=== PATIENT | female | born 1985 | race Caucasian/White ===

== ENCOUNTER 2017-12-11 12:11 | Observation (INO) ==
[2017-12-11] MEDS ORDERED: Isovue-370 500 ML INFUS..BTL IV ONE (12:14)
[2017-12-11 12:40] LABS: Basophils % 0.7 %; Eosinophils # 0.2 K/mcL (0.0-0.6); Eosinophils % 3.7 %; Hemoglobin 14.5 g/dL (11.5-15.4); Immature Granulocytes % 0.4 % (0-4); Lymphocytes # 1.7 K/mcL (0.6-4.6); Mean Corpuscular Hemoglobin 30.3 pg (28.0-33.3); Mean Corpuscular Volume 91.9 fL (83.0-100.0); Mean Platelet Volume 10.4 fL (9.4-12.4); Monocytes # 0.3 K/mcL (0.0-1.3); Monocytes % 5.4 %; Neutrophils # 3.1 K/mcL (1.6-8.9); Platelet Count 253 K/mcL (140-400); Red Blood Count 4.79 M/mcL (3.82-4.97); Red Cell Distribution Width 15.7 % (11.5-14.5); Segmented Neutrophils % 58.8 %
[2017-12-11 12:45] LABS: Prothrombin Time 10.9 Seconds (9.4-12.1)
[2017-12-11 12:48] LABS: Activated Partial Thrombo Time 34.1 Seconds (26.0-36.0)
--- NOTE | 2017-12-11 13:03 | Emergency Department Note ---
Disposition Clinical Impression: Hepatitis Disposition: Admitted As Inpatient Condition: Good Referrals: NONE,PCP [Primary Care Provider] - Time of Disposition: 13:05 Abdominal Pain HPI - General Chief Complaint: ED Abdominal Pain Stated Complaint: "jaundice" Time Seen by Provider: 12/11/17 12:14 Source: patient, family Mode of arrival: ambulatory Limitations: no limitations Nursing Notes Reviewed: Yes Vital Signs Reviewed: Yes - History of Present Illness HPI Narrative: 32 year old female presents to the ED with complanits of RUQ pain. I had the pleasure to speaking with Dr. Velásquez (GI) who has sent her for admission secondary to possile autoimmune hepatitis. Lora mckinney she ahs increased pain inthe RLQ that is sharp . She has an elevated bilirubin and they do not believe it to be gallstone related. Mary Kate has scleral icterus and nasuea with vomitting. Mary Kate states that this has been going on for the past few weeks. Denies bleeding occurances and had a history of alcohol abuse in the past but has recovered. denies IVDA Pain Scale: 10 - Related Data Home Medications Medication Instructions Recorded Confirmed Ibuprofen [Motrin] 400 mg PO Q6HR 12/11/17 12/11/17 Tizanidine HCl 4 mg PO HS 12/11/17 12/11/17 Allergies Allergy/AdvReac Type Severity Reaction Status Date / Time codeine Allergy Hives Verified 12/11/17 12:13 tramadol Allergy Difficulty Verified 12/11/17 12:13 Breathing propoxyphene AdvReac Nausea Verified 12/11/17 12:13 [From Frank] Constitutional: Denies: fever, chills, weakness, weight change Eyes: Denies: eye pain, eye discharge, vision change ENT ED: Denies: ear pain, throat pain, dental pain, hearing loss, epistaxis, congestion, dysphagia Cardiovascular: Denies: chest pain, palpitations, dyspnea on exertion, edema, syncope Respiratory: Denies: cough, dyspnea, wheezes, hemoptysis, stridor Gastrointestinal: Reports: abdominal pain. Denies: nausea, vomiting, diarrhea, constipation, hematemesis, melena, hematochezia Genitourinary: Denies: dysuria, frequency, hematuria, discharge Musculoskeletal: Denies: back pain, neck pain, arthralgia, myalgia Integumentary: Denies: rash, abrasion, lesions Neurological: Denies: headache, weakness, numbness, paresthesias, confusion, abnormal gait, vertigo Psychiatric: Denies: anxiety, depression, suicidal thoughts, homicidal thoughts , auditory hallucinations, visual hallucinations Endocrine: Denies: fatigue Hematological/Lymphatic: Denies: easy bleeding, easy bruising Allergic/Immunologic: Denies: facial swelling, urticaria Abdominal Pain PMH - Past Medical History Medical history: Reports: no medical history Female Surgical History: Reports: cholecystectomy, hysterectomy, Tonsillectomy CADDIE SUPERVISOR history: Reports: no CADDIE SUPERVISOR history Psychiatric history: Reports: depression - Social History Smoking status: Current every day smoker Alcohol use: Reports: none Drug use: Reports: none Physical Exam - General Limitations: no limitations General appearance: alert, in no apparent distress - Head Head exam: atraumatic, normocephalic, normal inspection - Eye Eye exam: Present: PERRL, EOMI, scleral icterus - Expanded Eye Exam Pupils: Bilateral: reactive - ENT ENT exam: normal exam, normal oropharynx, mucous membranes moist - Expanded ENT Exam External ear exam: Present: normal external inspection Mouth exam: Present: normal external inspection Teeth exam: Present: normal inspection Throat exam: Present: normal inspection - Neck Neck exam: Present: normal inspection, full ROM, trachea midline - Chest Chest inspection: Present: normal inspection, symmetric chest wall rise - Respiratory Respiratory exam: Present: normal lung sounds bilaterally - Cardiovascular Cardiovascular exam: Present: regular rate, normal rhythm, normal heart sounds - Abdominal Exam Abdominal exam: Present: soft, tenderness, normal bowel sounds, Cespedes's sign. Absent: Non-Tender, distention, guarding, rebound, rigidity, Rovsing's sign, tenderness at McBurney's Point Abdominal tenderness: Present: RUQ, moderate - Extremities Exam Extremities exam: Present: normal inspection, full ROM. Absent: tenderness, pedal edema - Expanded Upper Extremity Exam Shoulder exam: Present: normal inspection, full ROM Arm exam: Present: normal inspection, full ROM Elbow exam: Present: normal inspection, full ROM Forearm/Wrist exam: Present: normal inspection, full ROM Hand exam: Present: normal inspection, full ROM Vascular exam: Normal: capillary refill, radial pulse - Expanded Lower Extremity Exam Hip/Pelvis exam: Present: normal inspection, full ROM Upper leg exam: Present: normal inspection, full ROM Knee exam: Present: normal inspection, full ROM Lower leg exam: Present: normal inspection, full ROM Ankle exam: Present: normal inspection, full ROM Foot/toe exam: Present: normal inspection, full ROM Neurovascular/Tendon exam: Absent: motor deficit, sensory deficit, tendon deficit - Back Exam Back exam: Present: normal inspection, full ROM. Absent: tenderness - Neurological Exam Neurological exam: Present: alert, oriented X3 - Expanded Neurological Exam Patient oriented to: Present: person, place, time Coma Scale Eye Opening: Spontaneous Coma Scale Motor Response: Obeys Commands Coma Scale Verbal Response: Oriented Coma Scale Total: 15 - Psychiatric Psychiatric exam: Present: normal affect, normal mood - Skin Skin exam: Present: warm, dry, intact, normal color Course Course Narrative: we will obtain abdominal pain workup with labs and ABCT for full workup and admit to medicine with GI consult onboard Vital Signs Temperature 98.2 F 12/11/17 12:12 Pulse Rate 73 12/11/17 12:12 Respiratory Rate 16 12/11/17 12:12 Blood Pressure 124/83 12/11/17 12:12 O2 Sat by Pulse Oximetry 99 12/11/17 12:12 Temperature 98.2 F 12/11/17 12:14 Pulse Rate 69 12/11/17 12:54 Respiratory Rate 16 12/11/17 12:54 Blood Pressure 128/84 12/11/17 12:54 O2 Sat by Pulse Oximetry 99 12/11/17 12:54 Oxygen Delivery Oxygen Delivery Room Air Abdominal Pain - Lab Data Result diagrams: 12/11/17 12:30 Lab Results 12/11/17 12/11/17 12/11/17 Range/Units 12:30 12:30 12:30 WBC 5.4 (4.3-11.1) K/mcL RBC 4.79 (3.82-4.97) M/mcL Hgb 14.5 (11.5-15.4) g/dL Hct 44.0 (35.3-44.9) % MCV 91.9 (83.0-100.0) fL MCH 30.3 (28.0-33.3) pg MCHC 33.0 (31.6-35.5) g/dL RDW 15.7 H (11.5-14.5) % Plt Count 253 (140-400) K/mcL MPV 10.4 (9.4-12.4) fL Immature Gran % 0.4 (0-4) % Seg Neutrophils % 58.8 % Lymphocytes % 31.0 % Monocytes % 5.4 % Eosinophils % 3.7 % Basophils % 0.7 % Neutrophils # 3.1 (1.6-8.9) K/mcL Lymphocytes # 1.7 (0.6-4.6) K/mcL Monocytes # 0.3 (0.0-1.3) K/mcL Eosinophils # 0.2 (0.0-0.6) K/mcL Basophils # 0.0 (0.0-0.2) K/mcL PT 10.9 (9.4-12.1) Seconds INR 1.0 APTT 34.1 (26.0-36.0) Seconds Lactic Acid 0.7 (0.5-2.2) mmol/L
[2017-12-11 13:16] LABS: Alanine Aminotransferase 344 Units/L (7-52); Albumin 3.9 g/dL (3.5-5.7); Albumin/Globulin Ratio 1.6 (1.1-2.2); Alkaline Phosphatase 218 Units/L (34-104); Amylase 59 Units/L (29-103); Aspartate Amino Transferase 309 Units/L (13-39); BUN/Creatinine Ratio 11 (6-26); Bilirubin,Direct 2.7 mg/dL (0.0-0.2); Bilirubin,Indirect 2.5 mg/dL (0.0-1.2); Bilirubin,Total 5.2 mg/dL (0.3-1.0); Blood Urea Nitrogen 8 mg/dL (6-20); Calcium 9.2 mg/dL (8.6-10.3); Carbon Dioxide 28 mEq/L (23-29); Chloride 107 mEq/L (98-107); Globulin 2.4 g/dL (2.4-3.5); Glucose 87 mg/dL (70-105); Lipase 69 Units/L (11-82); Osmolality,Calculated 286 (280-300); Potassium 4.5 mEq/L (3.5-5.1); Sodium 139 mEq/L (136-145); Total Protein 6.3 g/dL (6.4-8.9); eGFR For African Americans > 60 (> 60); eGFR For Non-African Americans > 60 (> 60)
[2017-12-11] MEDS ORDERED: *HR* FentaNYL (PF) 100 MCG/2 ML VIAL IVP ONE (13:45)
[2017-12-11 13:48] LABS: Bilirubin,Urine Small (Negative); Blood,Urine Negative (Negative); Color,Urine Dark Yellow (Yellow); Glucose,Urine (UA) Normal (Normal); Ketones,Urine Negative (Negative); Leukocyte Esterase,Urine Negative (Negative); Nitrite,Urine Negative (Negative); Protein,Urine Negative (Neg-Trace); Specific Gravity,Urine 1.022 (1.010-1.025)
[2017-12-11 13:51] LABS: Hyaline Casts,Urine None Seen per lpf (None-Few); Squamous Epithelial Cell,Urine Many per lpf (None-Few)
[2017-12-11 13:53] LABS: Clarity,Urine Slightly Hazy (Clear)
[2017-12-11] MEDS ORDERED: Ondansetron 4 MG/2 ML VIAL IVP ONE (14:00)
--- NOTE | 2017-12-11 14:00 | Emergency Department Note ---
Disposition Clinical Impression: Hepatitis, Jaundice, Hyperbilirubinemia Disposition: Admitted As Inpatient Condition: Good Referrals: NONE,PCP [Primary Care Provider] - Forms: ED Satisfaction Letter, Work/School Release Time of Disposition: 14:17 Abdominal Pain HPI - General Chief Complaint: ED Abdominal Pain Stated Complaint: "jaundice" Time Seen by Provider: 12/11/17 12:14 Source: patient, family Mode of arrival: ambulatory Limitations: no limitations Nursing Notes Reviewed: Yes Vital Signs Reviewed: Yes - History of Present Illness HPI Narrative: 32-year-old female presents to the emergency department with jaundice. I am familiar with this patient as I saw and evaluated her this past week. Patient presented with new onset yellowing of the skin and right upper quadrant pain. She was found to have hepatitis suspected of alcoholic given her history of alcohol abuse, ~15 beers/day. Since then she has been sober. She complains of She was given appropriate G.I. follow-up and saw Dr. Spears this morning and was sent here for admission and further evaluation which may include biopsy. Patient reports persistent sharp pain in the right upper quadrant that now seems to be a little more generalized throughout. She reports nausea without vomiting. She is also noticed that she is more bloated around the abdomen. She is also noticed some swelling in her lower extremities. She denies any recent illness, fever, cough, chest pain or shortness of breath. Again she denies history of IV drug use. She denies any recent long-distance travel. Family history of rheumatoid arthritis. At this time will evaluate with hepatic panel, basic labs in the CT of the abdomen and pelvis. Will control her pain with some Fentanyl and Zofran. Pt Subjective Complaint: abdominal pain Pain Scale: 10 - Related Data Home Medications Medication Instructions Recorded Confirmed Ibuprofen [Motrin] 400 mg PO Q6HR 12/11/17 12/11/17 Tizanidine HCl 4 mg PO HS 12/11/17 12/11/17 Allergies Allergy/AdvReac Type Severity Reaction Status Date / Time codeine Allergy Hives Verified 12/11/17 12:13 tramadol Allergy Difficulty Verified 12/11/17 12:13 Breathing propoxyphene AdvReac Nausea Verified 12/11/17 12:13 [From Frank] All systems ED: reviewed and negative except as stated. Review of Systems: As Per HPI Constitutional: Reports: weight change. Denies: fever, chills, weakness Eyes: Denies: eye pain, vision change ENT ED: Denies: congestion Cardiovascular: Reports: edema. Denies: chest pain, dyspnea on exertion Respiratory: Denies: cough, dyspnea Gastrointestinal: Reports: abdominal pain, nausea. Denies: vomiting, diarrhea, constipation, hematemesis, melena, hematochezia Genitourinary: Denies: dysuria, frequency Musculoskeletal: Denies: back pain, neck pain, arthralgia, myalgia Integumentary: Denies: rash, abrasion, lesions Neurological: Denies: headache, weakness Psychiatric: Denies: anxiety, depression Endocrine: Denies: fatigue Abdominal Pain PMH - Past Medical History Medical history: Reports: no medical history Female Surgical History: Reports: cholecystectomy, hysterectomy, Tonsillectomy TONG HOOKER history: Reports: no TONG HOOKER history Psychiatric history: Reports: depression - Social History Smoking status: Current every day smoker Alcohol use: Reports: none Drug use: Reports: none Physical Exam - General Limitations: no limitations General appearance: alert, in no apparent distress - Head Head exam: atraumatic, normocephalic, normal inspection - Eye Eye exam: Present: normal appearance, PERRL, EOMI, scleral icterus - ENT ENT exam: normal exam, normal oropharynx, mucous membranes moist - Neck Neck exam: Present: normal inspection, full ROM, trachea midline - Chest Chest inspection: Present: normal inspection, symmetric chest wall rise - Respiratory Respiratory exam: Present: normal lung sounds bilaterally - Cardiovascular Cardiovascular exam: Present: regular rate, normal rhythm, normal heart sounds - Abdominal Exam Abdominal exam: Present: soft, normal bowel sounds, ascites (mild). Absent: Non -Tender, tenderness, distention, guarding, rebound, rigidity Abdominal tenderness: Present: RUQ, diffuse - Extremities Exam Extremities exam: Present: normal inspection, full ROM, normal capillary refill , pedal edema (nonpitting). Absent: tenderness - Back Exam Back exam: Present: normal inspection, full ROM. Absent: tenderness - Neurological Exam Neurological exam: Present: alert, oriented X3 - Psychiatric Psychiatric exam: Present: normal affect, normal mood - Skin Skin exam: Present: warm, dry, intact, other (mild jaundice) Course Course Narrative: Review of her labs shows improvement of her total bilirubin as well as her transaminitis. Review for CT scan shows resolving central periportal edema. At this time will admit to hospitalist service with GI consultation. Abdomen/Pelvis CT 12/11/17 12:14 IMPRESSION: 1. Resolving central periportal edema which can be seen areas conditions including hepatitis, hepatic congestion or hypervolemia states. D/ / Paul Concepcion MD / Paul Concepcion MD Interpreting Provider: Paul Concepcion MD - Consultations Consultation #1: Spoke with on-call hospitalist roberto Mc to admit for hepatitis concerning for autoimmune. Requests APAP, EtOH, and Hepatitis panel if not already performed/drawn from GI. Time: 14:17 Vital Signs Temperature 98.2 F 12/11/17 12:12 Pulse Rate 73 12/11/17 12:12 Respiratory Rate 16 12/11/17 12:12 Blood Pressure 124/83 12/11/17 12:12 O2 Sat by Pulse Oximetry 99 12/11/17 12:12 Temperature 98.2 F 12/11/17 12:14 Pulse Rate 67 12/11/17 14:01 Respiratory Rate 16 12/11/17 14:01 Blood Pressure 135/81 12/11/17 14:01 O2 Sat by Pulse Oximetry 100 12/11/17 14:01 Oxygen Delivery Oxygen Delivery Room Air Abdominal Pain - MDM Narrative Medical decision making narrative: Patient was discussed with my attending physician who agrees with ED management and final disposition. They independently evaluated the patient. Please refer to their attestation to this encounter for additional information. This note was generated by [employer] voice recognition software and as a result grammatical or spelling errors may occur using this program. - Medical Records Medical records reviewed: Yes I reviewed the patient's medical records. - Lab Data Lab results reviewed: Yes I reviewed the patient's lab results. Result diagrams: 12/11/17 12:30 12/11/17 12:30 Lab Results 12/11/17 12/11/17 12/11/17 Range/Units 12:30 12:30 12:30 WBC (4.3-11.1) K/mcL RBC (3.82-4.97) M/mcL Hgb (11.5-15.4) g/dL Hct (35.3-44.9) % MCV (83.0-100.0) fL MCH (28.0-33.3) pg MCHC (31.6-35.5) g/dL RDW (11.5-14.5) % Plt Count (140-400) K/mcL MPV (9.4-12.4) fL Immature Gran % (0-4) % Seg Neutrophils % % Lymphocytes % % Monocytes % % Eosinophils % % Basophils % % Neutrophils # (1.6-8.9) K/mcL Lymphocytes # (0.6-4.6) K/mcL Monocytes # (0.0-1.3) K/mcL Eosinophils # (0.0-0.6) K/mcL Basophils # (0.0-0.2) K/mcL PT 10.9 (9.4-12.1) Seconds INR 1.0 APTT 34.1 (26.0-36.0) Seconds Sodium (136-145) mEq/L Potassium (3.5-5.1) mEq/L Chloride (98-107) mEq/L Carbon Dioxide (23-29) mEq/L BUN (6-20) mg/dL Creatinine (0.60-1.20) mg/dL Est GFR ( Amer) (> 60) Est GFR (Non-Af Amer) (> 60) BUN/Creatinine Ratio (6-26) Glucose (70-105) mg/dL Calculated Osmolality (280-300) Lactic Acid 0.7 (0.5-2.2) mmol/L Calcium (8.6-10.3) mg/dL Total Bilirubin (0.3-1.0) mg/dL Direct Bilirubin (0.0-0.2) mg/dL Indirect Bilirubin (0.0-1.2) mg/dL AST (13-39) Units/L ALT (7-52) Units/L Alkaline Phosphatase (34-104) Units/L Troponin I < 0.03 (< 0.04) ng/mL Serum Total Protein (6.4-8.9) g/dL Albumin (3.5-5.7) g/dL Globulin (2.4-3.5) g/dL Albumin/Globulin Ratio (1.1-2.2) Amylase (29-103) Units/L Lipase (11-82) Units/L Urine Color (Yellow) Urine Clarity (Clear) Urine pH (5.0-8.0) pH Units Ur Specific [place] (1.010-1.025) Urine Protein (Neg-Trace) mg/dL Urine Glucose (UA) (Normal) mg/dL Urine Ketones (Negative) mg/dL Urine Blood (Negative) Urine Nitrite (Negative) Urine Bilirubin (Negative) Urine Urobilinogen (Normal) mg/dL Ur Leukocyte Esterase (Negative) Ur Squamous Epith Cells (None-Few) per lpf Amorphous Sediment (Few) Urine Bacteria (None-Few) per hpf Hyaline Casts (None-Few) per lpf Ur Culture Indicated? (NO) 12/11/17 12/11/17 12/11/17 Range/Units 12:30 12:30 13:40 WBC 5.4 (4.3-11.1) K/mcL RBC 4.79 (3.82-4.97) M/mcL Hgb 14.5 (11.5-15.4) g/dL Hct 44.0 (35.3-44.9) % MCV 91.9 (83.0-100.0) fL MCH 30.3 (28.0-33.3) pg MCHC 33.0 (31.6-35.5) g/dL RDW 15.7 H (11.5-14.5) % Plt Count 253 (140-400) K/mcL MPV 10.4 (9.4-12.4) fL Immature Gran % 0.4 (0-4) % Seg Neutrophils % 58.8 % Lymphocytes % 31.0 % Monocytes % 5.4 % Eosinophils % 3.7 % Basophils % 0.7 % Neutrophils # 3.1 (1.6-8.9) K/mcL Lymphocytes # 1.7 (0.6-4.6) K/mcL Monocytes # 0.3 (0.0-1.3) K/mcL Eosinophils # 0.2 (0.0-0.6) K/mcL Basophils # 0.0 (0.0-0.2) K/mcL PT (9.4-12.1) Seconds INR APTT (26.0-36.0) Seconds Sodium 139 (136-145) mEq/L Potassium 4.5 (3.5-5.1) mEq/L Chloride 107 (98-107) mEq/L Carbon Dioxide 28 (23-29) mEq/L BUN 8 (6-20) mg/dL Creatinine 0.75 (0.60-1.20) mg/dL Est GFR ( Amer) > 60 (> 60) Est GFR (Non-Af Amer) > 60 (> 60) BUN/Creatinine Ratio 11 (6-26) Glucose 87 (70-105) mg/dL Calculated Osmolality 286 (280-300) Lactic Acid (0.5-2.2) mmol/L Calcium 9.2 (8.6-10.3) mg/dL Total Bilirubin 5.2 H (0.3-1.0) mg/dL Direct Bilirubin 2.7 H (0.0-0.2) mg/dL Indirect Bilirubin 2.5 H (0.0-1.2) mg/dL AST 309 H (13-39) Units/L ALT 344 H (7-52) Units/L Alkaline Phosphatase 218 H (34-104) Units/L Troponin I (< 0.04) ng/mL Serum Total Protein 6.3 L (6.4-8.9) g/dL Albumin 3.9 (3.5-5.7) g/dL Globulin 2.4 (2.4-3.5) g/dL Albumin/Globulin Ratio 1.6 (1.1-2.2) Amylase 59 (29-103) Units/L Lipase 69 (11-82) Units/L Urine Color Dark Yellow (Yellow) Urine Clarity Slightly Hazy (Clear) Urine pH 7.0 (5.0-8.0) pH Units Ur Specific [place] 1.022 (1.010-1.025) Urine Protein Negative (Neg-Trace) mg/dL Urine Glucose (UA) Normal (Normal) mg/dL Urine Ketones Negative (Negative) mg/dL Urine Blood Negative (Negative) Urine Nitrite Negative (Negative) Urine Bilirubin Small H (Negative) Urine Urobilinogen 4.0 H (Normal) mg/dL Ur Leukocyte Esterase Negative (Negative) Ur Squamous Epith Cells Many H (None-Few) per lpf Amorphous Sediment Few (Few) Urine Bacteria Few (None-Few) per hpf Hyaline Casts None Seen (None-Few) per lpf Ur Culture Indicated? NO (NO) - Radiology Data Radiology results reviewed: Yes I reviewed the patient's radiology results. Abdomen/Pelvis CT 12/11/17 12:14
[2017-12-11 14:05] LABS: Amorphous Sediment,Urine Few (Few); Bacteria,Urine Few per hpf (None-Few)
[2017-12-11 14:50] LABS: Acetaminophen < 10 mcg/mL (10-20)
[2017-12-11 14:52] LABS: Ethanol < 10 mg/dL (Less than 10); Salicylate < 2.5 mg/dL (15.0-30.0)
[2017-12-11] MEDS ORDERED: Naloxone 0.4 MG/ML INJ IVP PRN (16:02)
[2017-12-11] MEDS ORDERED: traMADol 50 MG TABLET PO PRN (16:02)
--- NOTE | 2017-12-11 16:09 | Internal Med History&Physical ---
Addendum entered and electronically signed by Kristen Beach 12/11/17 16:32: In the Assessment part. Pt age was mistakenly entered as 68 years old, she is 32 year old. Please correct. Original Note: <Kristen Beach - Last Filed: 12/11/17 16:06> Date of Encounter: 12/11/17 Time of Encounter: 16:06 Internal Medicine - H&P: HPI Admitted From: Home Plans for Post Hospital Care: Home History of present illness: 32-year-old female presents to the emergency department with jaundice. I am familiar with this patient as I saw and evaluated her this past week. Patient presented with new onset yellowing of the skin and right upper quadrant pain. She was found to have hepatitis suspected of alcoholic given her history of alcohol abuse, ~15 beers/day. Since then she has been sober. She complains of She was given appropriate G.I. follow-up and saw Dr. Spears this morning and was sent here for admission and further evaluation which may include biopsy. Patient reports persistent sharp pain in the right upper quadrant that now seems to be a little more generalized throughout. She reports nausea without vomiting. She is also noticed that she is more bloated around the abdomen. She is also noticed some swelling in her lower extremities. She denies any recent illness, fever, cough, chest pain or shortness of breath. Again she denies history of IV drug use. She denies any recent long-distance travel. Family history of rheumatoid arthritis. Past Med Surg Social Fam HX - Past Medical History Medical history: no medical history Psychiatric history: depression - Social History Smoking Status: Current every day smoker Smokeless Tobacco Status: No Alcohol use: none Drug use: none Internal Medicine - H&P: Meds Ibuprofen [Motrin] 400 mg PO Q6HR 12/11/17 [History] Tizanidine HCl 4 mg PO HS 12/11/17 [History] 3 Allergy/AdvReac Type Severity Reaction Status Date / Time codeine Allergy Hives Verified 12/11/17 12:13 tramadol Allergy Difficulty Verified 12/11/17 12:13 Breathing propoxyphene AdvReac Nausea Verified 12/11/17 12:13 [From Lencho-N] All Systems PM: A 10-system review of systems was performed and is negative for pertinent findings except as documented above in the HPI. Review of systems: REVIEW OF SYSTEMS: CONSTITUTIONAL: No weight loss, fever, chills, weakness or fatigue. HEENT: Eyes: No visual loss, blurred vision, double vision or yellow sclerae. Ears, Nose, Throat: No hearing loss, sneezing, congestion, runny nose or sore throat. SKIN: No rash or itching. CARDIOVASCULAR: No chest pain, chest pressure or chest discomfort. No palpitations or edema. RESPIRATORY: No shortness of breath, cough or sputum. GASTROINTESTINAL: No anorexia, nausea, vomiting or diarrhea. No abdominal pain or blood. GENITOURINARY: No dysuria, urgency, or frequency. NEUROLOGICAL: No headache, dizziness, syncope, paralysis, ataxia, numbness or tingling in the extremities. No change in bowel or bladder control. MUSCULOSKELETAL: No muscle, back pain, joint pain or stiffness. HEMATOLOGIC: No anemia, bleeding or bruising. LYMPHATICS: No enlarged nodes. No history of splenectomy. PSYCHIATRIC: No history of depression or anxiety. ENDOCRINOLOGIC: No reports of sweating, cold or heat intolerance. No polyuria or polydipsia. - Constitutional Vitals: Temp Pulse Resp BP Pulse Ox 98.2 F 67 16 135/81 100 12/11/17 12:14 12/11/17 14:01 12/11/17 14:01 12/11/17 14:01 12/11/17 14:01 General appearance: Present: A&O X 3 Exam: PHYSICAL EXAMINATION: GENERAL APPEARANCE: The patient is alert, oriented and in no acute distress. HEENT: Head is normocephalic. The sinuses are nontender. Pupils are equal and reactive. The nares are patent. Oropharynx clear without lesions. NECK: Supple without lymphadenopathy. HEART: Regular rate and rhythm. LUNGS: No crackles or wheezes are heard. ABDOMEN: Soft, nontender, nondistended with good bowel sounds heard. Inguinal area is normal. EXTREMITIES: Without cyanosis, clubbing or edema. NEUROLOGICAL: Gross nonfocal. SKIN: Warm and dry without any rash. Internal Med - H&P Results - Labs CBC & Chem 7: 12/11/17 12:30 12/11/17 12:30 - Assessment and plan (1) Alcohol abuse Current Visit: No Status: Chronic Assessment and plan: - Asked to drink about 3 weeks ago. No alcohol withdrawal symptoms. - Continue thiamine and folate. (2) Hyperbilirubinemia Current Visit: Yes Status: Acute Assessment and plan: - We will cycle LFT. (3) Hepatitis Current Visit: Yes Status: Acute Assessment and plan: 68-year-old female with history of alcohol abuse and status post cholecystectomy presented with elevated bilirubin and liver enzyme. - pt follow-up with Dr. Velásquez. Was noticed to have elevated liver function panel on 12/05, repeat her liver function panel today revealed improving AST/ALT , and bilirubin. Dr. Velásquez is planning liver biopsy. - Repeat abdominal CT showed improved periportal edema. - We will start patient on IV fluid, continue trend LFT. Liver ultrasound ordered. - Avoid had hepatic toxic medications such as Tylenol. - Time Spent With Patient Total time spent is greater than 50% in coordination of care (as documented) at patient's floor/unit and/or counseling patient: Greater than 35 minutes <David Boyce - Last Filed: 12/11/17 19:52> Date of Encounter: 12/11/17 Time of Encounter: 18:30 - Constitutional Vitals: Temp Pulse Resp BP Pulse Ox 97.9 F 63 15 117/74 97 12/11/17 19:14 12/11/17 19:14 12/11/17 19:14 12/11/17 19:14 12/11/17 19:14 General appearance: Present: A&O X 3 - Head Head exam: Present: atraumatic, normal inspection - Eye Eye exam: Present: EOMI, PERRL, scleral icterus Pupils: Present: normal accommodation - ENT ENT exam: Present: mucous membranes dry, normal exam - Neck Neck exam general surgery: Present: full ROM, supple. Absent: tenderness, nuchal rigidity, thyromegaly - Respiratory Respiratory exam: Present: CTAB. Absent: rales, rhonchi, wheezes - Cardiovascular Cardiovascular exam: Present: RRR, +S1, +S2. Absent: diastolic murmur, systolic murmur - GI/Abdominal GI/Abdominal exam: Present: tenderness (RUQ), no peritoneal signs. Absent: guarding, hepatomegaly, rebound, splenomegaly - Extremities Exam Extremities exam: Present: warm, radial pulses palpable and symmetrical. Absent : calf tenderness, pedal edema, tenderness - Back Exam Back exam: Absent: CVA tenderness (L), CVA tenderness (R) - Neurological Exam Neurological exam: Present: no focal deficits - Psychiatric Psychiatric exam: Present: normal affect, normal mood - Skin Skin exam: Present: dry, warm. Absent: rash Additional comments: multiple tattoos Internal Med - H&P Results - Labs CBC & Chem 7: 12/11/17 12:30 12/11/17 12:30 - Attending Attestation I discussed the history of present illness, past medical history, review of systems, lab data, and exam findings with Kemar Beach CNP. I then saw and assessed patient independently as well. Upon my assessment of the patient, she appears to be clinically jaundiced. I reviewed her previous labs and they are much better than they were previously. I noticed on exam that she has multiple tattoos. I questioned her about her tattoos and if she had any risk for hepatitis B or C exposure. She states that she has always had sterile needles when tattoos were performed at a professional tattoo parlor. She denies prior IV drug use or blood transfusions. She did mention to me that up until about 3- 4 weeks ago, she was ingesting an excessive amount of Tylenol roughly 8-10 pills per day. This coincided with her alcohol abuse. Since then, she has had not had any alcohol and/or Tylenol. She does have some mild right upper quadrant abdominal pain. She denies any fevers or chills. She denies any prior history of hepatitis C or hepatitis B diagnosis. I did ask the ER to order an acute hepatitis profile when they called me about admitting her. Her hepatitis B surface antigen is positive and the rest of her profile is still pending at this time. We will await GI consultation, but I am not convinced she needs a liver biopsy at this time. I suspect she has hepatitis from alcohol abuse, Tylenol abuse, and likely hepatitis B as well. Other than my comments noted above and documented physical exam findings, I agree with Kemar's assessment and plan. - Assessment and plan (1) Alcohol abuse Current Visit: No Status: Chronic (2) Hyperbilirubinemia Current Visit: Yes Status: Acute (3) Hepatitis Current Visit: Yes Status: Acute - Time Spent With Patient Total time spent is greater than 50% in coordination of care (as documented) at patient's floor/unit and/or counseling patient:
[2017-12-11] MEDS: D5% in 0.45% NACL 1,000 ML IVC SCH (17:08)
[2017-12-11] MEDS: *HR* FentaNYL (PF) 100 MCG/2 ML VIAL IVP PRN ×2 (17:09→21:31)
[2017-12-11] MEDS: *HR* Heparin 5,000 UNIT/ML VIAL SQ SCH (17:09)
[2017-12-11] MEDS ORDERED: *HR* LORazepam 2 MG/ML VIAL IVP PRN (17:12)
[2017-12-11 19:11] LABS: Hepatitis B Surface Antigen Reactive (Nonreactive)
[2017-12-11] MEDS: Nicotine 14 MG PATCH.TD24 TD SCH (21:31)
[2017-12-11] MEDS: tiZANidine 4 MG TABLET PO SCH (21:31)
[2017-12-12 03:47] LABS: Hepatitis A Antibody IgM Nonreactive (Nonreactive); Hepatitis C Virus Antibody Nonreactive (Nonreactive)
[2017-12-12] MEDS: *HR* FentaNYL (PF) 100 MCG/2 ML VIAL IVP PRN ×4 (04:05→22:01)
[2017-12-12 05:07] LABS: Mean Corpuscular HGB Conc 32.5 g/dL (31.6-35.5); Mean Corpuscular Hemoglobin 29.7 pg (28.0-33.3); Mean Corpuscular Volume 91.5 fL (83.0-100.0); Mean Platelet Volume 10.9 fL (9.4-12.4); Platelet Count 214 K/mcL (140-400); Red Blood Count 4.37 M/mcL (3.82-4.97); Red Cell Distribution Width 15.6 % (11.5-14.5)
[2017-12-12 05:28] LABS: Alanine Aminotransferase 248 Units/L (7-52); Albumin 3.2 g/dL (3.5-5.7); Albumin/Globulin Ratio 1.6 (1.1-2.2); Alkaline Phosphatase 162 Units/L (34-104); Aspartate Amino Transferase 221 Units/L (13-39); BUN/Creatinine Ratio 8 (6-26); Bilirubin,Total 4.4 mg/dL (0.3-1.0); Blood Urea Nitrogen 6 mg/dL (6-20); Calcium 8.8 mg/dL (8.6-10.3); Carbon Dioxide 30 mEq/L (23-29); Chloride 107 mEq/L (98-107); Glucose 87 mg/dL (70-105); Osmolality,Calculated 287 (280-300); Potassium 4.6 mEq/L (3.5-5.1); Sodium 140 mEq/L (136-145); Total Protein 5.2 g/dL (6.4-8.9); eGFR For African Americans > 60 (> 60); eGFR For Non-African Americans > 60 (> 60)
[2017-12-12] MEDS: *HR* Heparin 5,000 UNIT/ML VIAL SQ SCH ×2 (06:06→18:01)
[2017-12-12] MEDS: D5% in 0.45% NACL 1,000 ML IVC SCH (06:06)
[2017-12-12 07:08] LABS: Hepatitis B Core IgM Reactive (Nonreactive)
[2017-12-12] MEDS: Thiamine (B-1) 100 MG TABLET PO SCH (07:57)
[2017-12-12] MEDS: Folic Acid 1 MG TABLET PO SCH (07:57)
[2017-12-12] MEDS: Nicotine 14 MG PATCH.TD24 TD SCH ×2 (10:12→20:00)
--- NOTE | 2017-12-12 13:53 | Gastroenterology Consult Note ---
<Nuris Dia - Last Filed: 12/12/17 13:47> Date of Encounter: 12/12/17 Time of Encounter: 11:15 - Assessment and plan (1) Hyperbilirubinemia Current Visit: Yes Status: Acute Assessment and plan: Likely due to acute Hep B infection, would treat symptomatically, continue IVF. Pt is feeling better and bili is decreasing. Continue to monitor LFTs. Liver ultrasound also shows possible sludge in the CBD will order MRCP to rule out choledocholithiasis. (2) Hepatitis Current Visit: Yes Status: Acute Assessment and plan: Hep B surface antigen and Igm positive indicative of acute Hep B infection. Pt is advised to avoid alcohol, tylenol and hepatotoxic meds. (3) Jaundice Current Visit: Yes Status: Acute - Time Spent With Patient Total time spent is greater than 50% in coordination of care (as documented) at patient's floor/unit and/or counseling patient: GI History of Present Illness - Data of Consult Patient: known to practice within the last 3 years Consult date: 12/12/17 Requesting Physician: Darron Elizalde - Consult Narrative Reason for consult: jaundice History of present illness: 32-year-old female presents to the emergency department with jaundice. She was evaluated last week in the ER and had a T bili of 15 at that time. Patient presented with new onset yellowing of the skin and right upper quadrant pain. She was found to have hepatitis suspected of alcoholic given her history of alcohol abuse, ~15 beers/day, she states she has not drank in the past [address] Velásquez yesterday and was sent here for admission and further evaluation. Patient reports persistent sharp pain in the right upper quadrant that now seems to be a little more generalized throughout. She reports nausea without vomiting. She is also noticed that she is more bloated around the abdomen. She is also noticed some swelling in her lower extremities. She denies any recent illness, fever, cough, chest pain or shortness of breath. Again she denies history of IV drug use, or known sexual contacts with Hep B. She does have nonprofessional tattoos but states 'I watched them open the needles". She denies any recent long-distance travel. Family history of rheumatoid arthritis. Liver ultrasound shows possible sludge in the common bile duct, and steatosis. EGD: denies Colon: denies NSAIDS: motrin Anticoagulants: heparin 0600 Past Med Surg Social Fam HX - Past Medical History Medical history: no medical history Psychiatric history: depression - Past Surgical History Surgical History: cholecystectomy, hysterectomy - Social History Smoking Status: Current every day smoker Smokeless Tobacco Status: No Alcohol use: none Drug use: none Review of Systems: GI: as per [facility] GENERAL: denies fever or chills EYES: yellow discoloration ENT: denies pain with swallowing or difficulty swallowing CARDIO: denies chest pain, palpitations RESP: No Shortness of breath with exertion : denies change in color of urine NEURO: denies any weakness HEME: Denies any bruising MS: denies joint pain, joint swelling or back pain. DERM: denies rash or itching PSYCH: history of anxiety and depression - Constitutional Vitals: Temp Pulse Resp BP Pulse Ox 97.7 F 73 14 107/65 94 12/12/17 10:24 12/12/17 10:24 12/12/17 10:24 12/12/17 10:24 12/12/17 10:24 Exam: CONSTITUTIONAL:~alert, no acute distress.~HEAD:~normocephalic.~EYES:~jaundice.~ NECK:~no obvious swelling.~HEART:~regular rate and rhythm, no murmurs.~LUNGS:~ bilateral good air entry.~ABDOMEN:~softly distended, soft, tender upper quadrants, no masses pulpable, no organomegaly.~RECTAL EXAM:~Deferred.~ EXTREMITIES:~no clubbing, cyanosis or edema.~SKIN:~jaundice noted.~NEUROLOGIC:~ no obvious focal defect.~~~~ Results - Labs CBC & Chem 7: 12/12/17 04:14 12/12/17 04:14 Labs: Last Result Calcium 8.8 mg/dL (8.6-10.3) 12/12/17 04:14 Troponin I < 0.03 ng/mL (< 0.04) 12/11/17 12:30 Salicylates < 2.5 mg/dL (15.0-30.0) L 12/11/17 12:30 Entire Visit Hgb 13.0 g/dL (11.5-15.4) D 12/12/17 04:14 Hct 40.0 % (35.3-44.9) 12/12/17 04:14 PT 10.9 Seconds (9.4-12.1) 12/11/17 12:30 Total Bilirubin 4.4 mg/dL (0.3-1.0) H 12/12/17 04:14 AST 221 Units/L (13-39) H 12/12/17 04:14 ALT 248 Units/L (7-52) H 12/12/17 04:14 Amylase 59 Units/L (29-103) 12/11/17 12:30 Lipase 69 Units/L (11-82) 12/11/17 12:30 Acetaminophen < 10 mcg/mL (10-20) L 12/11/17 12:30 - ABG ABG results: PT/INR, D-dimer PT 10.9 Seconds (9.4-12.1) 12/11/17 12:30 - Impressions Impressions Liver Ultrasound 12/11/17 18:30 IMPRESSION: Possible sludge within the common bile duct. Need for further evaluation with MRCP should be determined clinically. D/ / Jordin Monzon / Jordin Monzon Interpreting Provider: Jordin Monzon Consult Discharge Plan - Plan Referrals: NONE,PCP [Primary Care Provider] - <Rick Blum - Last Filed: 12/12/17 20:44> Date of Encounter: 12/12/17 Time of Encounter: 19:30 - Time Spent With Patient Total time spent is greater than 50% in coordination of care (as documented) at patient's floor/unit and/or counseling patient: GI History of Present Illness - Data of Consult Requesting Physician: Darron Elizalde - Consult Narrative History of present illness: Ms. Hwang is a 32 year old female - Constitutional Vitals: Temp Pulse Resp BP Pulse Ox 98.0 F 64 15 103/67 97 12/12/17 19:54 12/12/17 19:54 12/12/17 19:54 12/12/17 19:54 12/12/17 19:54 Results - Labs CBC & Chem 7: 12/12/17 04:14 12/12/17 04:14 Labs: Last Result Calcium 8.8 mg/dL (8.6-10.3) 12/12/17 04:14 Troponin I < 0.03 ng/mL (< 0.04) 12/11/17 12:30 Salicylates < 2.5 mg/dL (15.0-30.0) L 12/11/17 12:30 Entire Visit Hgb 13.0 g/dL (11.5-15.4) D 12/12/17 04:14 Hct 40.0 % (35.3-44.9) 12/12/17 04:14 PT 10.9 Seconds (9.4-12.1) 12/11/17 12:30 Total Bilirubin 4.4 mg/dL (0.3-1.0) H 12/12/17 04:14 AST 221 Units/L (13-39) H 12/12/17 04:14 ALT 248 Units/L (7-52) H 12/12/17 04:14 Amylase 59 Units/L (29-103) 12/11/17 12:30 Lipase 69 Units/L (11-82) 12/11/17 12:30 Acetaminophen < 10 mcg/mL (10-20) L 12/11/17 12:30 - ABG ABG results: PT/INR, D-dimer PT 10.9 Seconds (9.4-12.1) 12/11/17 12:30 - Impressions Impressions Abdomen MRI 12/12/17 10:01 IMPRESSION: As described previously, there is mild periportal edema which can be seen with hepatitis but is nonspecific. Trace right upper quadrant ascites is likely reactive but nonspecific. Unremarkable appearance of the biliary tree following cholecystectomy. Mild extrahepatic bile duct dilatation status post cholecystectomy is typical of reservoir effect. D/ / Fazal Zuñiga / Fazal Zuñiga Interpreting Provider: Fazal Zuñiga - Attending Attestation I have personally performed a face to face evaluation on this patient. I have reviewed and agree with the care plan. History and Exam by me shows: Patient seen patient with acute hepatitis B. Do not have any active symptom at this point Recommendation: Symptomatic treatment for hepatitis B. LFTs are improving and MRCP is negative for any CBD obstruction. Patient can be discharged with follow -up with us as an outpatient in a few weeks. Patient fiveronae is to get a vaccination for hepatitis B
[2017-12-12] MEDS ORDERED: Ondansetron 4 MG/2 ML VIAL IVP PRN (17:33)
--- NOTE | 2017-12-12 18:44 | Internal Med Progress Note ---
Date of Encounter: 12/12/17 Time of Encounter: 11:00 - Assessment and plan (1) Hepatitis B Current Visit: Yes Status: Acute Assessment and plan: Hep B surface antigen and Igm positive indicative of acute Hep B infection. GI consulted with recommendations to avoid hepatotoxic medications and alcohol Continue supportive care Qualifiers: Viral hepatitis chronicity: acute Qualified Code(s): B16.1 - Acute hepatitis B with delta-agent without hepatic coma (2) Hyperbilirubinemia Current Visit: Yes Status: Acute Assessment and plan: Secondary to the above. Will continue to monitor (3) Alcohol abuse Current Visit: No Status: Chronic Assessment and plan: Recommendations for alcohol cessation due to the above (4) DVT prophylaxis Current Visit: Yes Status: Acute Assessment and plan: Subcutaneous heparin - Time Spent With Patient Total time spent is greater than 50% in coordination of care (as documented) at patient's floor/unit and/or counseling patient: - Subjective Interval history: Patient with scleral icterus and jaundice on exam this morning secondary to recently diagnosis of hepatitis B - Constitutional Vitals: Temp Pulse Resp BP Pulse Ox 97.9 F 67 14 105/70 97 12/12/17 15:18 12/12/17 15:18 12/12/17 15:18 12/12/17 15:18 12/12/17 15:18 General appearance: Present: A&O X 3, no acute distress - Eye Eye exam: Present: scleral icterus - Respiratory Respiratory exam: Present: CTAB. Absent: accessory muscle use, rales, rhonchi, wheezes - Cardiovascular Cardiovascular exam: Present: RRR, +S1, +S2. Absent: diastolic murmur, gallop, rubs, systolic murmur - GI/Abdominal GI/Abdominal exam: Present: tenderness (Patient with generalized abdominal tenderness) Internal Medicine: Result - Labs CBC & Chem 7: 12/12/17 04:14 12/12/17 04:14 Labs: Short CBC 12/12/17 Range/Units 04:14 WBC 3.5 L (4.3-11.1) K/mcL Hgb 13.0 D (11.5-15.4) g/dL Hct 40.0 (35.3-44.9) % Plt Count 214 (140-400) K/mcL BMP 12/12/17 04:14 Sodium 140 Potassium 4.6 Chloride 107 Carbon Dioxide 30 H BUN 6 Creatinine 0.74 Glucose 87 Calcium 8.8 Liver Function 12/12/17 Range/Units 04:14 Total Bilirubin 4.4 H (0.3-1.0) mg/dL AST 221 H (13-39) Units/L ALT 248 H (7-52) Units/L Alkaline Phosphatase 162 H (34-104) Units/L Albumin 3.2 L (3.5-5.7) g/dL - ABG Interpretation ABG results: PT/INR, D-dimer PT 10.9 Seconds (9.4-12.1) 12/11/17 12:30 - Impressions Impressions Liver Ultrasound 12/11/17 18:30 IMPRESSION: Possible sludge within the common bile duct. Need for further evaluation with MRCP should be determined clinically. D/ / Jordin Monzon / Jordin Monzon Interpreting Provider: Jordin Monzon Consult Discharge Plan - Plan Referrals: NONE,PCP [Primary Care Provider] -
[2017-12-12] MEDS: tiZANidine 4 MG TABLET PO SCH (19:57)
[2017-12-13] MEDS: *HR* FentaNYL (PF) 100 MCG/2 ML VIAL IVP PRN ×3 (03:34→15:12)
[2017-12-13] MEDS: *HR* Heparin 5,000 UNIT/ML VIAL SQ SCH (05:53)
[2017-12-13 08:58] LABS: Hematocrit 42.8 % (35.3-44.9); Hemoglobin 14.2 g/dL (11.5-15.4); Mean Corpuscular HGB Conc 33.2 g/dL (31.6-35.5); Mean Corpuscular Hemoglobin 30.1 pg (28.0-33.3); Mean Corpuscular Volume 90.7 fL (83.0-100.0); Mean Platelet Volume 10.7 fL (9.4-12.4); Platelet Count 211 K/mcL (140-400); Red Blood Count 4.72 M/mcL (3.82-4.97)
[2017-12-13 09:17] LABS: Alanine Aminotransferase 238 Units/L (7-52); Albumin 3.6 g/dL (3.5-5.7); Albumin/Globulin Ratio 1.4 (1.1-2.2); Alkaline Phosphatase 175 Units/L (34-104); Aspartate Amino Transferase 266 Units/L (13-39); BUN/Creatinine Ratio 11 (6-26); Bilirubin,Total 3.9 mg/dL (0.3-1.0); Blood Urea Nitrogen 6 mg/dL (6-20); Calcium 9.3 mg/dL (8.6-10.3); Carbon Dioxide 25 mEq/L (23-29); Chloride 108 mEq/L (98-107); Globulin 2.6 g/dL (2.4-3.5); Glucose 146 mg/dL (70-105); Osmolality,Calculated 288 (280-300); Potassium 3.9 mEq/L (3.5-5.1); Sodium 139 mEq/L (136-145); Total Protein 6.2 g/dL (6.4-8.9); eGFR For African Americans > 60 (> 60); eGFR For Non-African Americans > 60 (> 60)
[2017-12-13] MEDS: Thiamine (B-1) 100 MG TABLET PO SCH (10:04)
[2017-12-13] MEDS: Folic Acid 1 MG TABLET PO SCH (10:04)
[2017-12-13] MEDS: Nicotine 14 MG PATCH.TD24 TD SCH (10:05)
[2017-12-13 10:56] VITALS: BP 102/67
--- NOTE | 2017-12-13 16:04 | Discharge Summary ---
Date of Encounter: 12/13/17 Time of Encounter: 11:00 - Discharge Diagnosis (1) Hepatitis B Status: Acute Qualifiers: Viral hepatitis chronicity: acute Qualified Code(s): B16.1 - Acute hepatitis B with delta-agent without hepatic coma (2) Hyperbilirubinemia Status: Acute (3) Alcohol abuse Status: Inactive (4) DVT prophylaxis Status: Acute Hospital course: Ms. Hwang is a 32 year old female - Time Spent with Patient Total time spent providing and/or coordinating discharge services: - Discharge Medications Home Medications: Ibuprofen [Motrin] 400 mg PO Q6HR 12/11/17 [History] Tizanidine HCl 4 mg PO HS 12/11/17 [History] Allergies/Adverse Reactions: 3 Allergy/AdvReac Type Severity Reaction Status Date / Time codeine Allergy Hives Verified 12/11/17 12:13 tramadol Allergy Difficulty Verified 12/11/17 12:13 Breathing propoxyphene AdvReac Nausea Verified 12/11/17 12:13 [From LenchoBarrett] Date of admission: 12/11/17 14:27 Primary care physician: PCP NONE Consults: 12/12/17 08:55 Consult to Gastroenterology [CONS] Routine Consulting Provider: Gastroenterology Yenny Reason for Consult: Elevated transaminases Time Notified: 09:00 Call Completed: Yes - Constitutional Vitals: Temp Pulse Resp BP Pulse Ox 97.8 F 84 14 102/67 99 12/13/17 10:54 12/13/17 10:54 12/13/17 10:54 12/13/17 10:54 12/13/17 10:54 General appearance: Present: A&O X 3, no acute distress - Patient Status Disposition: Home, Self-Care Condition: Good - Discharge Instructions Follow Up With: Cristy Pace DO [Resident] - 12/21/17 3:00 pm
--- NOTE | 2017-12-13 17:47 | Discharge Summary ---
- NOTES TO OUTPATIENT PROVIDER Notes to Outpatient Provider: Patient to follow-up with GI as an outpatient for surveillance and management of hepatitis. Date of Encounter: 12/13/17 Time of Encounter: 11:00 - Discharge Diagnosis (1) Hepatitis B Priority: Primary Status: Acute Assessment and Plan: Hep B surface antigen and Igm positive indicative of acute Hep B infection. GI consulted with recommendations to avoid hepatotoxic medications and alcohol Continue supportive care Qualifiers: Viral hepatitis chronicity: acute Qualified Code(s): B16.1 - Acute hepatitis B with delta-agent without hepatic coma (2) Hyperbilirubinemia Priority: Primary Status: Acute Assessment and Plan: Secondary to the above. Will continue to monitor (3) Alcohol abuse Priority: Primary Status: Inactive Assessment and Plan: Recommendations for alcohol cessation due to the above Hospital course: Patient is a 32-year-old female who presents to the ER on 12/11/17 due to jaundice and abdominal pain. Patient presented with new onset yellowing of the skin and right upper quadrant pain. She was found to have hepatitis suspected of alcoholic given her history of alcohol abuse, ~15 beers/day. Patient reported of appropriate G.I. follow-up and saw Dr. Spears the morning of admission and was sent to the hospital for further evaluation. During patients hospital stay, she was found to be positive for hepatitis B. GI was consulted with recommendations for MRCP with no acute findings. Patient will be discharged to follow-up with GI as an outpatient and to avoid hepatotoxic medications including sensation from alcohol. - Time Spent with Patient Total time spent providing and/or coordinating discharge services: Less than 30 minutes - Discharge Medications Home Medications: Ibuprofen [Motrin] 400 mg PO Q6HR 12/11/17 [History] Tizanidine HCl 4 mg PO HS 12/11/17 [History] Allergies/Adverse Reactions: 3 Allergy/AdvReac Type Severity Reaction Status Date / Time codeine Allergy Hives Verified 12/11/17 12:13 tramadol Allergy Difficulty Verified 12/11/17 12:13 Breathing propoxyphene AdvReac Nausea Verified 12/11/17 12:13 [From Darvocet-N] Date of admission: 12/11/17 14:27 Primary care physician: PCP NONE Consults: 12/12/17 08:55 Consult to Gastroenterology [CONS] Routine Consulting Provider: Gastroenterology Yenny Reason for Consult: Elevated transaminases Time Notified: 09:00 Call Completed: Yes - Constitutional Vitals: Temp Pulse Resp BP Pulse Ox 97.8 F 84 14 102/67 99 12/13/17 10:54 12/13/17 10:54 12/13/17 10:54 12/13/17 10:54 12/13/17 10:54 General appearance: Present: A&O X 3, no acute distress - Respiratory Respiratory exam: Present: CTAB. Absent: accessory muscle use, rales, rhonchi, wheezes - Cardiovascular Cardiovascular exam: Present: RRR, +S1, +S2. Absent: diastolic murmur, gallop, rubs, systolic murmur - Patient Status Disposition: Home, Self-Care Condition: Good - Discharge Instructions Follow Up With: Cristy Pace DO [Resident] - 12/21/17 3:00 pm
== END 2017-12-13 17:45 | disposition home or self-care (01) ==
LOC: 3ANU 12:11 → EMEROO 12:11 → SUATTDRO 14:27 → 3ANU 15:00
PROVIDERS: ADMIT Student in an Organized Health Care Education/Training Program; ATTEND Hospitalist